=== PATIENT | female | born 1980 | race Caucasian/White ===

== ENCOUNTER 2023-08-14 10:18 | Observation (INO) ==
[2023-08-14] MEDS ORDERED: Ondansetron ODT 4 mg TAB 4 MG TAB ONE (10:54)
[2023-08-14] MEDS ORDERED: Scopolamine 1 mg/72hr PATCH ONE (10:54)
[2023-08-14] MEDS ORDERED: ceFOXitin 2 GM IVPREMIX 2 GM/50 ML BAG ONE ×2 (10:55→17:38)
[2023-08-14] MEDS ORDERED: Famotidine IV 10 MG/ML 2 ml VIAL (20 mg) ONE (10:55)
[2023-08-14 11:21] LABS: Rapid COVID-19 Molecular Undetected (Undetected)
[2023-08-14] MEDS ORDERED: Rocuronium 50 mg VIAL 10 mg/ml 5 ml VIAL (50 mg) ONE ×2 (13:22→19:43)
[2023-08-14] MEDS ORDERED: Propofol 10 MG/ML 20 ML BTL ONE ×2 (13:22→20:06)
[2023-08-14] MEDS ORDERED: fentaNYL 250 mcg/5 ml 50 MCG/ML 5 ml VIAL (250 MCG) ONE (13:22)
[2023-08-14] MEDS ORDERED: Lidocaine 2% PF 5 ML VIAL ONE (13:22)
[2023-08-14] MEDS ORDERED: Midazolam 2 mg/2 ml VIAL 1 mg/ml 2 ml VIAL (2 mg) ONE (13:23)
[2023-08-14] MEDS ORDERED: Naloxone 0.4 mg VIAL 0.4 mg/ml 1 ml VIAL IV PRN (13:28)
[2023-08-14] MEDS: Famotidine IV 10 MG/ML 2 ml VIAL (20 mg) IV ONE (14:12)
[2023-08-14] MEDS: Lactated Ringers 1000 ml BAG 1,000 ML IV SCH (14:12)
[2023-08-14] MEDS ORDERED: Bupivacaine 0.5% 50 ML MDV VIAL ONE (16:24)
[2023-08-14] MEDS ORDERED: Fluorescein 10% INJ 100 MG/ML AMP ONE (16:25)
[2023-08-14] MEDS ORDERED: Ondansetron 4 mg VIAL 2 MG/ML 2 ml VIAL ONE ×2 (18:03→21:28)
[2023-08-14] MEDS ORDERED: HYDROmorphone 0.5 MG/0.5 ML SYRINGE ONE (18:05)
[2023-08-14] MEDS ORDERED: Esmolol 10 MG/ML 10 ML (100 mg) IV ONE (18:32)
[2023-08-14] MEDS ORDERED: Albuterol HFA INHALER 8 gm MDI INH ONE (18:32)
[2023-08-14] MEDS ORDERED: fentaNYL 100 mcg/2 ml 50 MCG/ML VIAL ONE ×2 (20:05→21:37)
[2023-08-14] MEDS: Ondansetron 4 mg VIAL 2 MG/ML 2 ml VIAL IV PRN (21:36)
[2023-08-14] MEDS: fentaNYL 100 mcg/2 ml 50 MCG/ML VIAL IV PRN (21:40)
[2023-08-14] MEDS ORDERED: HYDROmorphone 1 MG/1 ML SYRINGE IV PRN (21:45)
[2023-08-14] MEDS ORDERED: Ondansetron 4 mg VIAL 2 MG/ML 2 ml VIAL IV PRN (23:25)
[2023-08-14] MEDS ORDERED: oxyCODONE/Acetamin 5/325 mg TAB PO PRN (23:25)
[2023-08-14] MEDS: Acetaminophen IV 1 GM/100ML 1,000 MG/100 ML BAG IV PRN (23:28)
[2023-08-14] MEDS ORDERED: Acetaminophen IV 1 GM/100ML 1,000 MG/100 ML BAG IV ONE (23:28)
[2023-08-15] MEDS: Lactated Ringers 1000 ml BAG 1,000 ML IV SCH (00:37)
[2023-08-15] MEDS: Buffered Lidocaine 1% SYRIN 1 ml INTRADERM ONE (07:24)
[2023-08-15 10:29] VITALS: BP 105/72
== END 2023-08-15 12:24 | disposition home or self-care (01) ==
LOC: OR 10:18 → SSU 10:18
PROVIDERS: ADMIT Obstetrics & Gynecology; ATTEND Obstetrics & Gynecology